=== PATIENT | male | born 1980 | race Caucasian/White ===

== ENCOUNTER 2017-07-17 17:23 | Emergency (ER) | payer SELFPAY ==
[~2017-07-17] VITALS: Ht 175.3 cm; Wt 140.0 kg
[2017-07-17] MEDS ORDERED: CARV3.1242 PO (17:32)
[2017-07-17] MEDS ORDERED: FURO-152 PO (17:32)
[2017-07-17] MEDS ORDERED: ALD50 PO (17:33)
[2017-07-17] MEDS ORDERED: MORPHINE SULFATE 4 MG/ML CPJ (NOT FOR IM USE) IV ONE ×2 (17:45→17:53)
[2017-07-17] MEDS ORDERED: SODIUM CHLORIDE 0.9% 500 ML IV ONE (17:45)
[2017-07-17] MEDS ORDERED: ONDANSETRON HCL 4MG/2ML VIAL IV STA (17:45)
[2017-07-17] MEDS ORDERED: ASPIRIN 81MG TABLET PO STA (17:45)
[2017-07-17] MEDS ORDERED: ONDANSETRON HCL 4MG/2ML VIAL ONE (17:54)
[2017-07-17 18:05] VITALS: BP 143/56
[2017-07-17] MEDS ORDERED: HEPARIN 5000 UNITS/ML VIAL IV ONE (18:15)
[2017-07-17 18:23] LABS: BASOPHILS % 1.3 % (0.0-2.0); EOSINOPHILS % 3.3 % (0.0-5.0); HEMATOCRIT. 41.3 % (42.0-52.0); HEMOGLOBIN. 13.8 g/dL (14.0-18.0); LYMPHOCYTES % 27.8 % (20.0-50.0); MEAN CORPUSCULAR HEMOGLOBIN 28.3 pg (28.0-32.0); MEAN CORPUSCULAR VOLUME 84.5 fL (80.0-94.0); MEAN PLATELET VOLUME 8.3 fl (7.4-10.4); MONOCYTES % 7.9 % (2.0-8.0); NEUTROPHILS % 59.7 % (40.0-76.0); PLATELET 292 x1000/uL (130-400); RED BLOOD CELL COUNT 4.89 mill/uL (4.7-6.1)
[2017-07-17 18:27] LABS: PARTIAL THROMBOPLASTIN TIME 24.9 sec (23.4-31.0); PROTHROMBIN TIME 10.9 sec (9.4-11.6)
[2017-07-17 18:32] LABS: CARBON DIOXIDE 26 mEq/L (21-32); CHLORIDE 109 mEq/L (98-107)
[2017-07-17 18:42] LABS: TROPONIN I 0.56 ng/mL (0.00-0.04)
== END 2017-07-17 18:17 | disposition short-term general hospital (02) ==
LOC: EDBEDREQ 17:51 → ER 18:01 → CANBEDREQ 21:41
DX: I21.3 ST elevation (STEMI) myocardial infarction of unspecified site (principal); I50.9 Heart failure, unspecified; I11.0 Hypertensive heart disease with heart failure; E11.9 Type 2 diabetes mellitus without complications; Z88.1 Allergy status to other antibiotic agents
CPT/HCPCS: 36415; 71010; 80053; 83690; 84484; 85025; 85610; 85730; 93005; 96361; 96374; 96375; 99291; J1644; J2270; J2405; J7040; Z7610